=== PATIENT | female | born 1980 | race Caucasian/White ===

== ENCOUNTER 2016-07-30 18:47 | Emergency (ER) | payer SELFPAY ==
[~2016-07-30] VITALS: Ht 162.6 cm; Wt 59.0 kg
[2016-07-30] MEDS ORDERED: SODIUM CHLORIDE 0.9% 1,000 ML IV ONE (21:06)
[2016-07-30] MEDS ORDERED: ONDANSETRON HCL 4MG/2ML VIAL IV ONE (21:15)
[2016-07-30] MEDS ORDERED: MECLIZINE 25MG TABLET PO ONE (21:15)
[2016-07-30 21:25] LABS: BASOPHILS % 0.5 % (0.0-2.0); DIFFERENTIAL COMMENT 0; EOSINOPHILS % 0.9 % (0.0-5.0); HEMATOCRIT. 24.7 % (36.0-48.0); LYMPHOCYTES % 29.2 % (20.0-50.0); MEAN CORPUSCULAR HGB CONC 32.2 g/dL (31.0-37.0); MEAN CORPUSCULAR VOLUME 74.7 fL (81.0-99.0); MEAN PLATELET VOLUME 7.4 fl (7.4-10.4); MONOCYTES % 7.1 % (2.0-8.0); NEUTROPHILS % 62.3 % (40.0-76.0); PLATELET 395 x1000/uL (130-400); RED BLOOD CELL COUNT 3.31 mill/uL (4.2-5.4); RED CELL DISTRIBUTION WIDTH 18.7 % (11.6-14.6); WHITE BLOOD COUNT 10.3 x1000/uL (4.5-11.0)
[2016-07-30 21:32] LABS: PROTHROMBIN TIME 10.3 sec
[2016-07-30 21:33] LABS: ALBUMIN 3.6 g/dL (3.4-5.0); CALCIUM 8.8 mg/dL (8.5-10.1); CHLORIDE 107 mEq/L (98-107); INDEX HEMOLYSI 1 (1-3); INDEX ICTERIC 1 (1-4); INDEX LIPEMIC 1 (1-3)
[2016-07-30 21:36] LABS: ALANINE AMINOTRANSFERASE 12 IU/L (13-61); ANION GAP 13; CARBON DIOXIDE 26 mEq/L (21-32); UREA NITROGEN BLOOD 9 mg/dL (7-21)
[2016-07-30 21:39] LABS: eGFR > 60 mL/min (>60)
[2016-07-30] MEDS ORDERED: KETOROLAC 30MG/ML VIAL IV ONE (23:00)
[2016-07-31 01:16] VITALS: BP 107/52
== END 2016-07-31 01:15 | disposition home or self-care (01) ==
LOC: ER 18:48
DX: H81.10 Benign paroxysmal vertigo, unspecified ear (principal); R20.0 Anesthesia of skin; R42 Dizziness and giddiness; R51 Headache; R55 Syncope and collapse
CPT/HCPCS: 36415; 80053; 82962; 85025; 85610; 93005; 96361; 96374; 99285; J2405; Z7610; J7030; J8597

== ENCOUNTER 2016-08-04 10:43 | Emergency (ER) | payer OTHER ==
[~2016-08-04] VITALS: Ht 157.5 cm; Wt 77.0 kg
[2016-08-04] MEDS ORDERED: ACETAMINOPHEN 500MG TABLET PO ONE (11:30)
[2016-08-04] MEDS ORDERED: ONDANSETRON 4MG ODT PO ONE (11:30)
[2016-08-04] MEDS ORDERED: KETOROLAC 60MG/2ML VIAL IM ONE (13:15)
[2016-08-04] MEDS ORDERED: MECLIZINE 25MG TABLET PO ONE (13:45)
[2016-08-04 13:56] VITALS: BP 110/57
== END 2016-08-04 14:16 | disposition home or self-care (01) ==
LOC: ER 11:11
DX: H81.10 Benign paroxysmal vertigo, unspecified ear (principal); R51 Headache; R42 Dizziness and giddiness
CPT/HCPCS: 70450; 81025; 96372; 99284; J1885; Q0162; J8597